=== PATIENT | male | born 1995 | race Caucasian/White ===

== ENCOUNTER 2022-01-20 00:41 | Emergency (ER) | payer OTHER ==
[~2022-01-20] VITALS: Ht 175.3 cm; Wt 68.0 kg
[2022-01-20] MEDS ORDERED: ABILIFY2 MG PO (00:46)
--- NOTE | 2022-01-21 20:35 | EKG ---
[facility] [address] [facility] [place], [place] [address] Signed Normal sinus rhythm Normal ECG No previous ECGs available Confirmed by ALMA TAYLOR MD [id number] on 01/21/2022 8:35:01 PM Electronically Signed By: ALMA TAYLOR MD 01/21/222034 PATIENT NAME: PRICE FLORES Electrocardiogram DATE OF : [birth year] PHYSICIAN: ALMA TAYLOR MD REPORT #: [id number] REPORT IS CONFIDENTIAL AND NOT TO BE RELEASED WITHOUT AUTHORIZATION
== END 2022-01-20 03:33 | disposition home or self-care (01) ==
LOC: ED 00:41
DX: E86.0 Dehydration (principal)
CPT/HCPCS: 36415; 80053; 81001; 83036; 83735; 84484; 85025; 93005; 93010; 96360; 99284-25; J7121